=== PATIENT | female | born 1970 | race Two or more races ===

== ENCOUNTER 2017-12-24 17:00 | Emergency (ER) | payer MEDICAID ==
[~2017-12-24] VITALS: Ht 149.9 cm; Wt 79.4 kg
[2017-12-24] MEDS ORDERED: Isovue-300 100ml vial INJ PRN (19:45)
[2017-12-24 20:00] VITALS: BP 140/92
--- NOTE | 2017-12-24 20:39 | Emergency Room Report ---
History of Present Illness General Chief Complaint: Abdominal Pain Source: Patient (Loly Cuellarlizy P.A.) Present Illness HPI 47 y.o. F hx of HTN on HCTZ50, here c/o one day or periumbilical and right lower quadrant pain. denies fever/chills, nausea, vomiting, diahrrea. rates pain 8/10, no radiation, has not taken pain meds. pt just came back from [facility] 5 days ago. denies recent abx use, or intake of new food. pt is in mild distress, ambulatory and stable.denies palpitation, sob, CP. (Kyree Cuellar P.A.) Allergies: Coded Allergies: No Known Allergies (Unverified , 12/24/17) Patient History Past Medical History: see triage record Past Surgical History: none Pertinent Family History: none Last Menstrual Period: 12/02/17 Now: No : 2 Para: 2 Immunizations: UTD Reviewed Nursing Documentation: PMH: Agreed; PSxH: Agreed (Kyree Cuellar P.A.) Nursing Documentation-PMH Past Medical History: No History, Except For Hx Hypertension: Yes Hx Asthma: Yes (Kyree Cuellar P.A.) Review of Systems All Other Systems: negative except mentioned in HPI (Kyree Cuellar P.A.) Physical Exam Vital Signs Date Time Temp Pulse Resp B/P (MAP) Pulse Ox O2 Delivery O2 Flow Rate FiO2 12/24/17 17:33 98.4 88 16 140/92 96 Room Air 98.4 Sp02 EP Interpretation: reviewed, normal General Appearance: normal inspection, well appearing, mild distress Head: normocephalic Eyes: bilateral eye normal inspection, bilateral eye PERRL ENT: normal ENT inspection, hearing grossly normal Neck: normal inspection, full range of motion, supple Respiratory: normal inspection, chest non-tender, lungs clear, normal breath sounds, no rhonchi, no respiratory distress, no retraction, no accessory muscle use Cardiovascular #1: normal inspection, normal peripheral pulses, regular rate, rhythm, no edema, no gallop, no JVD, no murmur, no rub Gastrointestinal: normal bowel sounds, no organomegaly, no peritonitis, no bruit, non-distended, guarding - RLQ and periumbilica, rebound - RLQ and periumbilical, other - Mcburney's positive, rovsings pos, obturator and psoas neg Rectal: deferred Genitourinary: no CVA tenderness, deferred Musculoskeletal: normal inspection, back normal Neurologic: normal inspection, alert, oriented x3, responsive Psychiatric: normal inspection, judgement/insight normal, memory normal Skin: normal inspection, normal color, no rash, warm/dry Lymphatic: normal inspection, no adenopathy (Kyree Cuellar P.A.) Medical Decision Making PA Attestation all orders, dx, tx plans reviewed and discussed with my supervising physician Dr. medeiros (Kyree Cuellar P.A.) Diagnostic Impression: Primary Impression: Epiploic appendagitis Additional Impression: Omental infarction ER Course 47 y.o. F hx of HTN on HCTZ50, here c/o one day or periumbilical and right lower quadrant pain. denies fever/chills, nausea, vomiting, diahrrea. rates pain 8/10, no radiation, has not taken pain meds. pt just came back from [facility] 5 days ago. denies recent abx use, or intake of new food. pt is in mild distress, ambulatory and stable.denies palpitation, sob, CP. Ddx considered but are not limited to appendicitis, gastroentheritis, ovarian cyst Vital signs: are WNL, pt. is afebrile H&PE are most consistent with [ ] ORDERS: abdominal CT no contrast, CBC, CMP, lipase, UA ED INTERVENTIONS: None required at this time. WBC: 15, HCT 57, Hgb 17, leuk in UA 1+, occult blood present in UA, WBC in UA AST 86, total protein 8.7, Lab Results Impression possible renal stone, UTI (Kyree Cuellar P.A.) ER Course Hospital Course 47-year-old M presents to ED with abdominal pain Patient initially seen and evaluated by my PA; please see her note for full history and physical Clinical course Labs - noted leukocytosis, electrolytes ok, LFTs normal, UA + blood + bacteria CT scan shows area of stranding near ascending colon ? omental infarction vs epiploic appendagitis discussed findings with surgery Dr. Barr; states that management is nonoperative. Recommends appropriate analgesia and antibiotics. Close follow- up with PMD Discussed findings with patient. Agrees to plan. Given pain medications here and Cipro/Flagyl here I feel this is a highly complex case requiring extensive working including EKG/ Rhythm strip, Xray/CT/US, Blood/urine lab work, repeat exams while in ED, and administration of strong opiates/narcotics for pain control, admission to hospital or close patient follow up. Diagnosis - epipoloic appendagitis, omental infarction Stable and discharged to home with Rx Motrin, [place], Cipro, Flagyl. Followup with PMD. Return to ED if symptoms recur or worsen Labs Test 12/24/17 21:40 White Blood Count 15.6 K/UL (4.8-10.8) Red Blood Count 6.01 M/UL (4.20-5.40) Hemoglobin 17.2 G/DL (12.0-16.0) Hematocrit 52.7 % (37.0-47.0) Mean Corpuscular Volume 88 FL (80-99) Mean Corpuscular Hemoglobin 28.6 PG (27.0-31.0) Mean Corpuscular Hemoglobin Concent 32.6 G/DL (32.0-36.0) Red Cell Distribution Width 12.8 % (11.6-14.8) Platelet Count 331 K/UL (150-450) Mean Platelet Volume 7.2 FL (6.5-10.1) Neutrophils (%) (Auto) 65.3 % (45.0-75.0) Lymphocytes (%) (Auto) 26.0 % (20.0-45.0) Monocytes (%) (Auto) 5.4 % (1.0-10.0) Eosinophils (%) (Auto) 2.2 % (0.0-3.0) Basophils (%) (Auto) 1.0 % (0.0-2.0) Urine Color Pale yellow Urine Appearance Slightly cloudy Urine pH 5 (4.5-8.0) Urine Specific Garnett 1.020 (1.005-1.035) Urine Protein 2+ (NEGATIVE) Urine Glucose (UA) Negative (NEGATIVE) Urine Ketones Negative (NEGATIVE) Urine Occult Blood 2+ (NEGATIVE) Urine Nitrite Negative (NEGATIVE) Urine Bilirubin Negative (NEGATIVE) Urine Urobilinogen Normal MG/DL (0.0-1.0) Urine Leukocyte Esterase 2+ (NEGATIVE) Urine RBC 10-15 /HPF (0 - 2) Urine WBC 5-10 /HPF (0 - 2) Urine Squamous Epithelial Cells Moderate /LPF (NONE/OCC) Urine Bacteria Moderate /HPF (NONE) Sodium Level 137 MMOL/L (136-145) Potassium Level 4.0 MMOL/L (3.5-5.1) Chloride Level 102 MMOL/L (98-107) Carbon Dioxide Level 25 MMOL/L (21-32) Anion Gap 10 mmol/L (5-15) Blood Urea Nitrogen 13 mg/dL (7-18) Creatinine 1.0 MG/DL (0.55-1.30) Estimat Glomerular Filtration Rate 59.4 mL/min (>60) Glucose Level 93 MG/DL (74-106) Calcium Level 9.4 MG/DL (8.5-10.1) Total Bilirubin 0.3 MG/DL (0.2-1.0) Aspartate Amino Transf (AST/SGOT) 86 U/L (15-37) Alanine Aminotransferase (ALT/SGPT) 64 U/L (12-78) Alkaline Phosphatase 108 U/L (46-116) Total Protein 8.7 G/DL (6.4-8.2) Albumin 3.6 G/DL (3.4-5.0) Globulin 5.1 g/dL Albumin/Globulin Ratio 0.7 (1.0-2.7) Lipase 146 U/L (73-393) (Bk Medeiros MD) CT/MRI/US Diagnostic Results CT/MRI/US Diagnostic Results : Imaging Test Ordered: abd CT with contrast (Kyree Cuellar P.A.) CT/MRI/US Diagnostic Results : Imaging Test Ordered: CT A/P Impression Focal area of stranding within the fat adjacent to the ascending colon which likely represents focal omental infarction. Epiploic appendagitis is within the differential diagnosis. (Bk Medeiros MD) Last Vital Signs Date Time Temp Pulse Resp B/P (MAP) Pulse Ox O2 Delivery O2 Flow Rate FiO2 12/24/17 17:33 98.4 88 16 140/92 96 Room Air 98.4 (Kyree Cuellar P.ASalvador) Status: improved (Bk Medeiros MD) Disposition: HOME, SELF-CARE Condition: Stable Scripts Metronidazole* (FLAGYL*) 500 Mg Tablet 500 MG ORAL THREE TIMES A DAY, #21 TAB Prov: Bk Medeiros MD 12/25/17 Ciprofloxacin Hcl* (CIPROFLOXACIN HCL*) 500 Mg Tablet 500 MG ORAL Q12H, #14 TAB 0 Refills Prov: Bk Medeiros MD 12/25/17 Hydrocodone Bit/Acetaminophen 5-325* (NORCO 5-325*) 1 Each Tablet 1 TAB ORAL Q6H PRN for For Pain, #10 TAB 0 Refills Prov: Bk Medeiros MD 12/25/17 Ibuprofen* (MOTRIN*) 600 Mg Tablet 600 MG ORAL Q8H PRN for For Pain, #30 TAB 0 Refills Prov: Bk Medeiros MD 12/25/17 Referrals: [facility],REFERRING (PCP) Kyree Cuellar Dec 24, 2017 20:39 Bk Medeiros MD Dec 25, 2017 01:19
[2017-12-24 22:04] LABS: EOSINOPHILS % (AUTO) 2.2 % (0.0-3.0); HEMATOCRIT 52.7 % (37.0-47.0); HEMOGLOBIN 17.2 G/DL (12.0-16.0); MEAN CORPUSCULAR VOLUME 88 FL (80-99); MONOCYTES % (AUTO) 5.4 % (1.0-10.0); NEUTROPHILS % (AUTO) 65.3 % (45.0-75.0); PLATELET COUNT 331 K/UL (150-450); RED BLOOD COUNT 6.01 M/UL (4.20-5.40); RED CELL DISTRIBUTION WIDTH 12.8 % (11.6-14.8); WHITE BLOOD COUNT 15.6 K/UL (4.8-10.8)
[2017-12-24 22:24] LABS: ANION GAP 10 mmol/L (5-15); BLOOD UREA NITROGEN 13 mg/dL (7-18); CALCIUM 9.4 MG/DL (8.5-10.1); CARBON DIOXIDE 25 MMOL/L (21-32); CHLORIDE 102 MMOL/L (98-107); SODIUM 137 MMOL/L (136-145)
[2017-12-24 22:28] LABS: ALANINE AMINOTRANSFERASE 64 U/L (12-78); ALBUMIN 3.6 G/DL (3.4-5.0); ALBUMIN/GLOBULIN RATIO 0.7 (1.0-2.7); ALKALINE PHOSPHATASE 108 U/L (46-116); ASPARTATE AMINO TRANSFERASE 86 U/L (15-37); BILIRUBIN,TOTAL 0.3 MG/DL (0.2-1.0)
[2017-12-24 22:30] LABS: APPEARANCE,URINE SLIGHTLY CLOUDY; BILIRUBIN, URINE NEGATIVE (NEGATIVE); COLOR,URINE PALE YELLOW; GLUCOSE, URINE (UA) NEGATIVE (NEGATIVE); KETONES,URINE NEGATIVE (NEGATIVE); LEUKOCYTE ESTERASE ,URINE 2+ (NEGATIVE); NITRITE,URINE NEGATIVE (NEGATIVE); PH,URINE 5 (4.5-8.0); PROTEIN,URINE 2+ (NEGATIVE); UROBILINOGEN,URINE NORMAL MG/DL (0.0-1.0)
--- NOTE | 2017-12-25 00:32 | Diagnostic Imaging Report ---
EXAM: CT Abdomen and Pelvis With Intravenous Contrast CLINICAL HISTORY: PAIN TECHNIQUE: Axial computed tomography images of the abdomen and pelvis with intravenous contrast. CTDI is 19 mGy and DLP is 1003 mGy-cm. One or more of the following dose reduction techniques were used: automated exposure control, adjustment of the mA and/or kV according to patient size, use of iterative reconstruction technique. COMPARISON: No relevant prior studies available. FINDINGS: Lung bases: Bibasilar subsegmental atelectasis in the lungs. ABDOMEN: Liver: Unremarkable. No mass. Gallbladder and bile ducts: Unremarkable. No calcified stones. No ductal dilation. Pancreas: Unremarkable. No mass. No ductal dilation. Spleen: Unremarkable. No splenomegaly. Adrenals: Unremarkable. No mass. Kidneys and ureters: Unremarkable. No solid mass. No hydronephrosis. Stomach and bowel: Ventral hernia defect in the anterior pelvis containing fat and a portion of bowel. No bowel obstruction. The neck of the hernia defect is 4.1 cm transversely. There is an area of focal stranding in the fat adjacent to the ascending colon image 47 series 3. No mucosal thickening. PELVIS: Appendix: No findings to suggest acute appendicitis. Bladder: Unremarkable. No mass. Reproductive: Unremarkable as visualized. ABDOMEN and PELVIS: Intraperitoneal space: Unremarkable. No free air. No significant fluid collection. Bones/joints: There are degenerative changes in the thoracic and lumbar spine. No acute fracture. No dislocation. Soft tissues: See above. Vasculature: Unremarkable. No abdominal aortic aneurysm. Lymph nodes: Unremarkable. No enlarged lymph nodes. IMPRESSION: 1. Focal area of stranding within the fat adjacent to the ascending colon which likely represents focal omental infarction. Epiploic appendagitis is within the differential diagnosis. 2. Ventral hernia defect in the anterior pelvis. 3. No bowel obstruction.
[2017-12-25] MEDS ORDERED: metroNIDAZOLE 500mg tab ORAL ONE (01:00)
[2017-12-25] MEDS ORDERED: Ciprofloxacin 500mg tab ORAL ONE (01:00)
[2017-12-25] MEDS ORDERED: Ketorolac 30mg Inj IV ONE (01:00)
[2017-12-25] MEDS ORDERED: Morphine Sulfate 4mg/ml Inj IVP ONE (01:00)
[2017-12-25] MEDS ORDERED: IBUPROFEN600 MG ORAL (01:06)
[2017-12-25] MEDS ORDERED: CIPROFLOXACIN500 M2 ORAL (01:06)
[2017-12-25] MEDS ORDERED: NORCO 5-325 TA1 EACH ORAL (01:06)
[2017-12-25] MEDS ORDERED: METRONIDAZOLE500 MG ORAL (01:06)
[2017-12-25 01:10] VITALS: BP 121/87
[2017-12-25 01:26] VITALS: BP 125/82
== END 2017-12-25 01:25 | disposition home or self-care (01) ==
LOC: EMR 18:24
DX: K63.89 Other specified diseases of intestine (principal); K55.069 Acute infarction of intestine, part and extent unspecified; I10 Essential (primary) hypertension; J45.909 Unspecified asthma, uncomplicated
CPT/HCPCS: 36415; 74177; 80053; 81001; 83690; 85025; 87086; 96374; 96375; 99284; J1885; J2270; Q9967

== ENCOUNTER 2018-09-22 11:38 | Emergency (ER) | payer MEDICAID ==
[~2018-09-22] VITALS: Ht 127 cm; Wt 81.6 kg
[~2018-09-22 11:38] MED LIST: CIPROFLOXACIN500 M2 ORAL; IBUPROFEN600 MG ORAL; METRONIDAZOLE500 MG ORAL; NORCO 5-325 TA1 EACH ORAL
[2018-09-22] MEDS ORDERED: HYDROCHLOROTHIA50 MG ORAL (11:46)
--- NOTE | 2018-09-22 11:49 | NUR ---
Note undone in EDM - 09/22/18 at 1248 by [facility] ED Nurse Note: PT WALKED IN TO ER TODAY FROM HOME. AOX4. PT C/O PERSISTENT NONPRODUCTIVE COUGH AND SNEEZING X 1 WEEK. PT DENIES PAIN OR FEVER. LUNG SOUNDS CLEAR IN ALL LOBES. NO SIGNS OF RESPIRATORY DISTRESS OR RETRACTIONS NOTED. RR18 @ 98% O2 SATURATION ON RA.
--- NOTE | 2018-09-22 11:49 | NUR ---
ED Nurse Note: PT WALKED IN TO ER TODAY FROM HOME. AOX4. PT C/O PERSISTENT NONPRODUCTIVE COUGH AND SNEEZING X 1 WEEK. PT DENIES PAIN OR FEVER. LUNG SOUNDS DIMINISHED IN ALL LOBES. HOWEVER, NO SIGNS OF RESPIRATORY DISTRESS OR RETRACTIONS NOTED. RR18 @ 98% O2 SATURATION ON RA.
[2018-09-22 11:50] VITALS: BP 152/98
--- NOTE | 2018-09-22 12:04 | Emergency Room Report ---
History of Present Illness General Chief Complaint: Upper Respiratory Illness Source: Medical Record Present Illness HPI 48 year-old female patient presents ER complaining of cough for the past week. Reports dry cough. Denies hemoptysis. Reports history of asthma, complains of shortness of breath during this time, states that she is been using her inhaler. Reports that she saw her primary care provider 2 days ago and was told that it was "allergies" and was given Singulair. Reports symptoms have not improved since that time. Denies recent travel outside the country. Denies other aggravating or relieving factors. States not taking any Tylenol others medications at home. Denies fever. Denies vomiting or diarrhea. Also complaining of reproducible chest pain with cough. Denies chest pain at rest. Denies history of heart disease or heart attack. Denies hx of diabetes. Denies dysuria, hematuria. Allergies: Coded Allergies: No Known Allergies (Unverified , 12/24/17) Patient History Past Medical History: see triage record Last Menstrual Period: last summer Reviewed Nursing Documentation: PMH: Agreed; PSxH: Agreed Nursing Documentation-PMH Past Medical History: No History, Except For Hx Hypertension: Yes Hx Asthma: Yes Review of Systems All Other Systems: negative except mentioned in HPI Physical Exam Vital Signs Date Time Temp Pulse Resp B/P (MAP) Pulse Ox O2 Delivery O2 Flow Rate FiO2 09/22/18 11:43 99.1 96 16 158/103 95 Room Air Sp02 EP Interpretation: reviewed, normal General Appearance: well appearing, no apparent distress, alert, GCS 15, non- toxic Head: normocephalic, atraumatic Eyes: bilateral eye normal inspection, bilateral eye PERRL ENT: hearing grossly normal, normal pharynx, no angioedema, normal voice, uvula midline, moist mucus membranes Neck: full range of motion, no meningismus, no bony tend Respiratory: lungs clear, no rhonchi, no respiratory distress, no accessory muscle use, decreased breath sounds, speaking full sentences Cardiovascular #1: regular rate, rhythm, no edema Gastrointestinal: non tender, soft, no mass, non-distended, no guarding, no rebound Musculoskeletal: back normal, digits/nails normal, gait/station normal, normal range of motion, non-tender, no calf tenderness, Kayley's Sign negative Neurologic: alert, oriented x3, responsive, motor strength/tone normal, sensory intact Skin: no rash Medical Decision Making PA Attestation Dr. Vasques is my supervising Physician whom patient management has been discussed with. Diagnostic Impression: Primary Impression: Pneumonia Additional Impression: Asthma exacerbation ER Course Pt presents to ED c/o cough and SOB, hx of asthma. DDX considered but are not limited to asthma, viral URI, influenza, bronchitis, pneumonia, [place], Chest pain likely musculoskeletal in nature secondary to cough, does not require cardiac workup at this time. Patient instructed to take NSAIDs as needed for pain symptoms. Denies hx of cardiac disease, smoking or diabetes, low suspicion for cardiac etiology of symptoms. VITAL SIGNS are WNL, patient is afebrile. Temperature however mildly elevated, will provide patient with Motrin for fever. Ordered breathing treatment and medication. ER COURSE Patient provided with prednisone, cough medication and motrin. Duoneb breathing treatment provided. Following treatment patient states no longer having difficulty with breathing. Lung sounds improved. Patient is resting comfortably in no acute distress. Chest x-ray shows consolidation consistent with pneumonia. Will discharge patient home with abx. Patient under 65 yo, no confusion, denies urinary complaints or abdominal pain, no hematuria, no hypoxia, pulse ox>95, OK for outpatient followup and treatment. ER precautions given. Followup with PCP for further evaluation and treatment. DISCHARGE: At this time pt is stable for d/c to home. Patient is resting comfortably in no acute distress, nontoxic appearing, able to answer questions without difficulty. Patient to take medications as instructed Will provide with patient care instructions and any necessary prescriptions. Care plan and follow-up instructions provided. Patient instructed to follow-up with primary care provider in 3 - 5 days. Patient questions asked and answered. Patient reports understanding and agreement to treatment plan. ER precautions given. Patient instructed to return to ER immediately for any new or worsening of symptoms including but not limited to increasing SOB, persistent fever. - Please note that this Emergency Department Report was dictated using [employer] project technology software, occasionally this can lead to erroneous entry secondary to interpretation by the dictation equipment. Chest X-Ray Diagnostic Results Chest X-Ray Diagnostic Results : Chest X-Ray Ordered: Yes # of Views/Limited/Complete: 1 View Indication: Chest Pain EP Interpretation: Yes PA Xray: Interpretation reviewed, by supervising MD, and agrees with findings. Interpretation: no effusion, no pneumothorax Impression: Other - Pneumonia PA Scribe Text Jeffry Milan PA-C Last Vital Signs Date Time Temp Pulse Resp B/P (MAP) Pulse Ox O2 Delivery O2 Flow Rate FiO2 09/22/18 11:50 92 18 Room Air 09/22/18 11:50 98.9 152/98 98 Status: improved Disposition: HOME, SELF-CARE Condition: Stable Scripts Benzonatate* (TESSALON PERLE*) 100 Mg Capsule 100 MG ORAL THREE TIMES A DAY, #30 PERLE Prov: Simeon Milan 09/22/18 Ibuprofen* (MOTRIN*) 600 Mg Tablet 600 MG ORAL Q8H PRN for For Pain, #30 TAB 0 Refills Prov: Simeon Milan 09/22/18 Albuterol Sulfate* (ALBUTEROL SULFATE MDI*) 8.5 Gm Hfa.aer.ad 2 PUFF INH Q6H, #1 INH 0 Refills Prov: Simeon Milan 09/22/18 Prednisone* (PREDNISONE*) 20 Mg Tablet 40 MG ORAL DAILY for 4 Days, #8 TAB Prov: Simeon Milan 09/22/18 Azithromycin* (ZITHROMAX*) 250 Mg Tablet 250 MG ORAL DAILY, #6 TAB 0 Refills Take two tables once daily for 1 day, then one tablet once daily for 4 days. Prov: Simeon Milan 09/22/18 Patient Instructions: Asthma Attack Prevention, Asthma, Adult, [id number], Community-Acquired Pneumonia, Adult, [id number] Additional Instructions: Followup with primary care provider in 2-3 days. Take medications as directed. Patient questions asked and answered. ER precautions given, patient instructed to return to ER immediately for any new or worsening of symptoms including but not limited to chest pain, shortness of breath, abdominal pain. Simeon Milan Sep 22, 2018 12:04
[2018-09-22] MEDS ORDERED: Albuterol/Ipratropium 3ml neb HHN ONE (12:15)
[2018-09-22] MEDS ORDERED: Benzonatate 100mg Perles ORAL ONE (12:15)
--- NOTE | 2018-09-22 12:15 | NUR ---
ED Nurse Note: RT AT BEDSIDE.
--- NOTE | 2018-09-22 12:35 | NUR ---
ED Nurse Note: XRAY AT BEDSIDE
[2018-09-22] MEDS ORDERED: ALBUTEROL SULF8.5 GM INH (13:14)
[2018-09-22] MEDS ORDERED: ZITHROMAX250 MG ORAL (13:14)
[2018-09-22] MEDS ORDERED: PREDNISONE20 MG ORAL (13:14)
[2018-09-22] MEDS ORDERED: IBUPROFEN600 MG ORAL (13:14)
[2018-09-22] MEDS ORDERED: TESSALON PERLE100 MG ORAL (13:14)
[2018-09-22 13:25] VITALS: BP 146/92
--- NOTE | 2018-09-22 13:26 | NUR ---
ED Nurse Note: PT SITTING PEACEFULLY IN BED IN NAD. AOX4. PRESCRIPTIONS AND DISCHARGE PAPERWORK EXPLAINED TO PT. PT VERBALIZES UNDERSTANDING AND ALL QUESTIONS ANSWERED. PRESCRIPTIONS SENT ELECTRONICALLY, DISCHARGE PAPERWORK GIVEN TO PT AND ID WRISTBAND REMOVED. PT WALKED OUT OF ER WITH STEADY GAIT AND ALL BELONGINGS.
--- NOTE | 2018-09-22 16:41 | Diagnostic Imaging Report ---
Indication: Cough Technique: One view of the chest Comparison: none Findings: The heart is borderline enlarged. Lungs and pleural spaces are clear. Impression: Borderline cardiomegaly No acute process
== END 2018-09-22 13:27 | disposition home or self-care (01) ==
LOC: EMR 13:24
DX: J18.9 Pneumonia, unspecified organism (principal); J45.901 Unspecified asthma with (acute) exacerbation; I10 Essential (primary) hypertension
CPT/HCPCS: 71045; 94640; 94664; 99283; J7512; J7620

== ENCOUNTER 2019-12-22 12:43 | Inpatient (IN) | payer MEDICAID ==
[~2019-12-22] VITALS: Ht 149.9 cm; Wt 82.1 kg
[~2019-12-22 12:43] MED LIST changes: +ALBUTEROL SULF8.5 GM INH; +HYDROCHLOROTHIA50 MG ORAL; +PREDNISONE20 MG ORAL; +TESSALON PERLE100 MG ORAL; +ZITHROMAX250 MG ORAL
[2019-12-22 13:00] VITALS: BP 145/88
--- NOTE | 2019-12-22 13:00 | NUR ---
ED Nurse Note: Pt walked in from home d/t numbness in both arms, worse on the right. Numbness began this morning. Pt also reports same feeling on right leg x 2 days. Respirations even and unlabored on room air. Vitals stable as documented.
[2019-12-22] MEDS ORDERED: AMLODIPINE BESY10 MG ORAL (13:02)
--- NOTE | 2019-12-22 13:23 | NUR ---
ED Nurse Note: blood and urine sent to lab
--- NOTE | 2019-12-22 13:27 | NUR ---
ED Nurse Note: ED PA @ bedside
[2019-12-22 13:38] LABS: APPEARANCE,URINE CLEAR; BILIRUBIN, URINE NEGATIVE (NEGATIVE); GLUCOSE, URINE (UA) NEGATIVE (NEGATIVE); KETONES,URINE NEGATIVE (NEGATIVE); LEUKOCYTE ESTERASE ,URINE NEGATIVE (NEGATIVE); NITRITE,URINE NEGATIVE (NEGATIVE); PH,URINE 6 (4.5-8.0); UROBILINOGEN,URINE NORMAL MG/DL (0.0-1.0)
[2019-12-22 13:40] LABS: BASOPHILS % (AUTO) 1.2 % (0.0-2.0); EOSINOPHILS % (AUTO) 2.5 % (0.0-3.0); HEMATOCRIT 50.3 % (37.0-47.0); HEMOGLOBIN 16.7 G/DL (12.0-16.0); LYMPHOCYTES % (AUTO) 34.6 % (20.0-45.0); MEAN CORPUSCULAR VOLUME 90 FL (80-99); MONOCYTES % (AUTO) 6.8 % (1.0-10.0); NEUTROPHILS % (AUTO) 54.9 % (45.0-75.0); PLATELET COUNT 261 K/UL (150-450); RED CELL DISTRIBUTION WIDTH 11.7 % (11.6-14.8); WHITE BLOOD COUNT 12.1 K/UL (4.8-10.8)
--- NOTE | 2019-12-22 13:43 | Emergency Room Report ---
History of Present Illness General Chief Complaint: General Complaint Source: Patient Present Illness HPI 49-year-old female presents to the emergency department complaining of intermittent paresthesia of the right forearm and hand x2 days. Patient describes "feeling weird "she denies changes in muscle strength in the affected extremity. Patient denies pain. Patient reports that last week she did experience a transient episode of a muscle spasm in the right calf which resolved on its own after approximately 15 to 20 minutes. Patient reports that the muscle and skin felt really tight. She states that she examined her extremity and did not notice any obvious abnormalities or swelling. Patient denies skin color changes or symptoms in the feet. Patient denies back pain or neck pain. She denies trauma or fall. She denies visual changes, headache, dizziness, chest pain or shortness of breath. Patient states that the numbness/ tingling feeling is primarily on the dorsum of the right forearm and fingers 2 through 5 of the right hand. Patient states that it is been sparing the thumb. Patient reports she is right-hand dominant. Patient does endorse doing a lot of cleaning lately and did endorse using that hand more frequently with some increased strenuous activity such as scrubbing things. She denies joint pain. She reports hx of being prediabetic that is controlled with diet and that she is closely followed by a construction foreman. She states she has been eating healthy and accordingly to her nutrition plan. Pt. reports she has been in communication with her primary care provider whom she spoke to about the muscle spasm which occurred last week. Patient states that her primary care provider felt that it was probably from sitting for long period of time prior to onset. Patient describes sitting in tall barstool at her kitchen table where her legs do not touch the ground and a lot of pressure is placed behind the knees. Patient denies difficulty with ambulating. She denies loss of gross motor movements. She denies loss of fine motor movements. She Denies hyperventilation or increased stress/anxiety. Allergies: Coded Allergies: No Known Allergies (Unverified , 12/24/17) COVID-19 Screening Contact w/high risk pt: No Recent Travel to affected area: No Experienced COVID-19 symptoms?: No COVID-19 Testing performed POST GRADUATE INTERN: No Patient History Past Medical History: see triage record Past Surgical History: none Pertinent Family History: none Last Menstrual Period: 2 yrs ago Now: No Reviewed Nursing Documentation: PMH: Agreed; PSxH: Agreed Nursing Documentation-PMH Past Medical History: No History, Except For Hx Hypertension: Yes Hx Asthma: Yes Review of Systems All Other Systems: negative except mentioned in HPI Physical Exam Vital Signs Date Time Temp Pulse Resp B/P (MAP) Pulse Ox O2 Delivery O2 Flow Rate FiO2 12/22/19 12:55 98.2 76 18 150/86 (107) 99 Room Air Sp02 EP Interpretation: reviewed, normal General Appearance: no apparent distress, alert, GCS 15, non-toxic Head: normocephalic, atraumatic Eyes: bilateral eye normal inspection, bilateral eye PERRL, bilateral eye EOMI , bilateral eye other - no photophobia ENT: hearing grossly normal, normal voice Neck: full range of motion, no bony tend Respiratory: chest non-tender, lungs clear, normal breath sounds, no respiratory distress, no accessory muscle use, no wheezing, speaking full sentences Cardiovascular #1: regular rate, rhythm, no edema, normal capillary refill Cardiovascular #2: 2+ radial (R), 2+ radial (L) Gastrointestinal: non tender, soft Musculoskeletal: back normal, normal range of motion, gait/station normal, non- tender, other - no swelling, no erythema Neurologic: alert, motor strength/tone normal, chargeback specialist III-XII nml as tested, oriented, oriented x3, sensory intact, responsive, speech normal, normal gait, no pronator, grossly normal - normal motor strength/equal cloth bin packer strength, no focal defects, other - no focal neurological defects or ataxia ( normal finger to nose) . Negative Little's Psychiatric: judgement/insight normal Lymphatic: no adenopathy Medical Decision Making PA Attestation Dr. Brown Is my supervising Physician whom patient management has been discussed with. Diagnostic Impression: Primary Impression: Abnormal EKG Additional Impression: Paresthesia of arm ER Course 49-year-old female presents to the emergency department complaining of intermittent paresthesia of the right forearm and hand x2 days. Patient describes "feeling weird "she denies changes in muscle strength in the affected extremity. Patient denies pain. Patient reports that last week she did experience a transient episode of a muscle spasm in the right calf which resolved on its own after approximately 15 to 20 minutes. Patient reports that the muscle and skin felt really tight. She states that she examined her extremity and did not notice any obvious abnormalities or swelling. Patient denies skin color changes or symptoms in the feet. Patient denies back pain or neck pain. She denies trauma or fall. She denies visual changes, headache, dizziness, chest pain or shortness of breath. Patient states that the numbness/ tingling feeling is primarily on the dorsum of the right forearm and fingers 2 through 5 of the right hand. Patient states that it is been sparing the thumb. Patient reports she is right-hand dominant. Patient does endorse doing a lot of cleaning lately and did endorse using that hand more frequently with some increased strenuous activity such as scrubbing things. She denies joint pain. She reports hx of being prediabetic that is controlled with diet and that she is closely followed by a construction foreman. She states she has been eating healthy and accordingly to her nutrition plan. Pt. reports she has been in communication with her primary care provider whom she spoke to about the muscle spasm which occurred last week. Patient states that her primary care provider felt that it was probably from sitting for long period of time prior to onset. Patient describes sitting in tall barstool at her kitchen table where her legs do not touch the ground and a lot of pressure is placed behind the knees. Patient denies difficulty with ambulating. She denies loss of gross motor movements. She denies loss of fine motor movements. She Denies hyperventilation or increased stress/anxiety. Ddx considered but are not limited to Neuropathy, paresthesia, electrolyte imbalance, cardiac dysrhythmia, stroke, DVT, MS, cyanocobalamin deficiency. nerve palsy, neuritis Vital signs: are WNL, pt. is afebrile H&PE are most consistent with normal neurological examination, no focal neurological defects or ataxia. Negative Little's. Pt. NAD, non-toxic in appearance. No motor weakness. Alert and oriented and providing sufficient amount of detail regarding her symptoms. ORDERS: --CBC: WBC's 12.2 -CMP: AST of 52, potassium 3.4 mostly unremarkable - Troponin: 0.00 CRP * elevated 3.3 -UDS: all negative -UA: unremarkable no evidence of infection at this time. - EKG: * Abnormal appearance, repeat EKG had similar findings. No previous EKG for comparison. -CT Head without contrast: Unremarkable, no acute intracranial process per radiology. ED INTERVENTIONS: None required at this time. DISPOSITION: at this time pt. will be admitted to Dr. Joaquin for r/o of ACS and need for cardiology evaluation. Dr. Joaquin agreed to admit the pt. and to continue pt. care management. Labs Test 12/22/19 13:15 White Blood Count 12.1 K/UL (4.8-10.8) Red Blood Count 5.60 M/UL (4.20-5.40) Hemoglobin 16.7 G/DL (12.0-16.0) Hematocrit 50.3 % (37.0-47.0) Mean Corpuscular Volume 90 FL (80-99) Mean Corpuscular Hemoglobin 29.8 PG (27.0-31.0) Mean Corpuscular Hemoglobin Concent 33.2 G/DL (32.0-36.0) Red Cell Distribution Width 11.7 % (11.6-14.8) Platelet Count 261 K/UL (150-450) Mean Platelet Volume 8.1 FL (6.5-10.1) Neutrophils (%) (Auto) 54.9 % (45.0-75.0) Lymphocytes (%) (Auto) 34.6 % (20.0-45.0) Monocytes (%) (Auto) 6.8 % (1.0-10.0) Eosinophils (%) (Auto) 2.5 % (0.0-3.0) Basophils (%) (Auto) 1.2 % (0.0-2.0) Urine Color Yellow Urine Appearance Clear Urine pH 6 (4.5-8.0) Urine Specific [place] 1.020 (1.005-1.035) Urine Protein 2+ (NEGATIVE) Urine Glucose (UA) Negative (NEGATIVE) Urine Ketones Negative (NEGATIVE) Urine Blood Negative (NEGATIVE) Urine Nitrite Negative (NEGATIVE) Urine Bilirubin Negative (NEGATIVE) Urine Urobilinogen Normal MG/DL (0.0-1.0) Urine Leukocyte Esterase Negative (NEGATIVE) Urine RBC 0 /HPF (0 - 2) Urine WBC 0-2 /HPF (0 - 2) Urine Squamous Epithelial Cells Few /LPF (NONE/OCC) Urine Bacteria Few /HPF (NONE) Sodium Level 142 MMOL/L (136-145) Potassium Level 3.4 MMOL/L (3.5-5.1) Chloride Level 101 MMOL/L (98-107) Carbon Dioxide Level 30 MMOL/L (21-32) Anion Gap 11 mmol/L (5-15) Blood Urea Nitrogen 20 mg/dL (7-18) Creatinine 1.0 MG/DL (0.55-1.30) Estimat Glomerular Filtration Rate 58.9 mL/min (>60) Glucose Level 102 MG/DL (74-106) Calcium Level 9.1 MG/DL (8.5-10.1) Total Bilirubin 0.5 MG/DL (0.2-1.0) Aspartate Amino Transf (AST/SGOT) 53 U/L (15-37) Alanine Aminotransferase (ALT/SGPT) 40 U/L (12-78) Alkaline Phosphatase 127 U/L (46-116) Total Creatine Kinase 251 U/L (26-308) Troponin I 0.000 ng/mL (0.000-0.056) C-Reactive Protein, Quantitative 3.3 mg/dL (0.00-0.90) Total Protein 8.6 G/DL (6.4-8.2) Albumin 4.0 G/DL (3.4-5.0) Globulin 4.6 g/dL Albumin/Globulin Ratio 0.9 (1.0-2.7) Urine Opiates Screen Negative (NEGATIVE) Urine Barbiturates Screen Negative (NEGATIVE) Phencyclidine (PCP) Screen Negative (NEGATIVE) Urine Amphetamines Screen Negative (NEGATIVE) Urine Benzodiazepines Screen Negative (NEGATIVE) Urine Cocaine Screen Negative (NEGATIVE) Urine Marijuana (THC) Screen Negative (NEGATIVE) EKG Diagnostic Results EP Interpretation: Dr. Brown & [place] Rate: normal - 72 Rhythm: NSR ST Segments: other - Some inverted T-waves through out. Q wave in lead 2 & 3. ASA given to the pt in ED: No PA Scribe Text This Interpretation was scribed by KLAUDIA Dobson. Last Vital Signs Date Time Temp Pulse Resp B/P (MAP) Pulse Ox O2 Delivery O2 Flow Rate FiO2 12/22/19 13:00 69 18 Room Air 12/22/19 13:00 98.2 145/88 98 Disposition: ADMITTED INPATIENT Condition: Serious Referrals: [facility],REFERRING (PCP) Rosemarie Dobson Dec 22, 2019 13:43
[2019-12-22 13:46] LABS: PROTEIN,URINE 2+ (NEGATIVE)
[2019-12-22 13:48] LABS: COLOR,URINE YELLOW
[2019-12-22 13:50] LABS: ANION GAP 11 mmol/L (5-15); BLOOD UREA NITROGEN 20 mg/dL (7-18); CALCIUM 9.1 MG/DL (8.5-10.1); CARBON DIOXIDE 30 MMOL/L (21-32); CHLORIDE 101 MMOL/L (98-107); POTASSIUM 3.4 MMOL/L (3.5-5.1); SODIUM 142 MMOL/L (136-145)
[2019-12-22 13:55] LABS: ALANINE AMINOTRANSFERASE 40 U/L (12-78); ALBUMIN/GLOBULIN RATIO 0.9 (1.0-2.7); ALKALINE PHOSPHATASE 127 U/L (46-116); ASPARTATE AMINO TRANSFERASE 53 U/L (15-37); BILIRUBIN,TOTAL 0.5 MG/DL (0.2-1.0); CREATINE KINASE 251 U/L (26-308)
--- NOTE | 2019-12-22 14:31 | Diagnostic Imaging Report ---
EXAM: CT Head Without Intravenous Contrast CLINICAL HISTORY: WEAK TECHNIQUE: Axial computed tomography images of the head/brain without intravenous contrast. CTDI is 53.4 mGy and DLP is 992.1 mGy-cm. One or more of the following dose reduction techniques were used: automated exposure control, adjustment of the mA and/or kV according to patient size, use of iterative reconstruction technique. COMPARISON: None FINDINGS: Brain: No acute infarct or hemorrhage. No extra-axial fluid collection. No mass effect or midline shift. Ventricles and sulci: Normal. No ventriculomegaly or intraventricular hemorrhage. Bones: Normal. No bony lesion or fracture. Subcutaneous tissues: Normal. Sinuses: Normal. No air-fluid levels or mucosal thickening. Mastoid air cells: Normal. Orbits: Grossly unremarkable. IMPRESSION: No acute intracranial abnormality.
[2019-12-22 15:00] VITALS: BP 149/82
--- NOTE | 2019-12-22 18:01 | NUR ---
ED Nurse Note: report given to NADIA Rojas in SDU
--- NOTE | 2019-12-22 18:10 | NUR ---
ED Nurse Note: Pt transferred safely to SDU. Belongings list verified.
--- NOTE | 2019-12-22 18:15 | NUR ---
NURSE NOTES: Received report from Sandoval Kinsey RN. Patient alert and oriented x 4, no c/o pain. SR on ship captain. On room air, respirations even and unlabored. Left AC 18g saline lock patent and asymptomatic. Skin intact. Patient denies any pain or numbness at this time. Bed locked in lowest position with side rails up x 2. All needs attended to. Call light within reach. Will continue to monitor.
[2019-12-22 18:25] VITALS: BP 142/93
--- NOTE | 2019-12-22 18:25 | NUR ---
NURSE NOTES: Dr. Santana messaged for orders. Awaiting call back.
--- NOTE | 2019-12-22 18:47 | NUR ---
NURSE NOTES: Per Dr. Santana, Dr. Alejandra is covering for him, Dr. Alejandra messaged for orders. Awaiting call back.
--- NOTE | 2019-12-22 19:00 | NUR ---
NURSE NOTES: Received admission orders from Dr. Alejandra and placed in computer.
[2019-12-22] MEDS ORDERED: Nitroglycerin Subl 0.4mg tab SL PRN (19:15)
[2019-12-22] MEDS ORDERED: HydrALAZINE 25mg tab ORAL PRN (19:15)
[2019-12-22] MEDS ORDERED: Albuterol/Ipratropium 3ml neb HHN PRN (19:15)
--- NOTE | 2019-12-22 19:18 | NUR ---
HAND-OFF: Report given to Kaushal Vasquez RN.
--- NOTE | 2019-12-22 19:20 | NUR ---
NURSE NOTES: Received patient from NADIA Rojas. Patient is aaox4, vss, on personnel monitor, and no acute distress. Patient is cooperative and clean. Patient is on room air with and 18g left upper arm IV. Patient has skin issues and frequently ambulates. Will continue to monitor patient.
[2019-12-22 20:00] VITALS: BP 138/84
--- NOTE | 2019-12-22 20:22 | History & Physical ---
History and Physical History & Physicial History and Physical HPI Patient is a 49-year old woman admitted c/o complaining of intermittent paresthesia of the right forearm and hand x2 days. She denies changes in muscle strength in the affected extremity, denies pain. Previously had a muscle spasm in the right calf which resolved on its own after approximately 15 to 20 minutes, denies skin color changes or symptoms in the feet. Patient denies back pain or neck pain, no recent trauma or fall. No visual changes, headache, dizziness. No chest pain, no shortness of breath, no hyperventilation or increased stress/anxiety. She states that the numbness/tingling feeling is primarily on the dorsum of the right forearm and fingers 2 through 5 of the right hand, sparing the thumb, she did a lot of cleaning lately and did endorse using that hand more frequently with some increased strenuous activity such as scrubbing things. She denies joint pain. Past Medical History: Hypertension, Asthma, Prediabetic that is controlled with diet. Noted to have abnormal EKG in the ED Allergies: No Known Allergies All Other Systems: negative except mentioned in HPI Physical Exam Vital Signs noted Date Time Temp Pulse Resp B/P (MAP) Pulse Ox O2 Delivery O2 Flow Rate FiO2 12/22/19 12:55 98.2 76 18 150/86 (107) 99 Room Air General Appearance: no apparent distress, alert, GCS 15, non-toxic Head: normocephalic, atraumatic Eyes: bilateral eye normal inspection, bilateral eye PERRL, bilateral eye EOMI , bilateral eye other - no photophobia ENT: hearing grossly normal, normal voice Neck: full range of motion, no bony tend Respiratory: chest non-tender, lungs clear, normal breath sounds, no respiratory distress, no accessory muscle use, no wheezing, speaking full sentences Cardiovascular: HS1, HS2, regular rate, rhythm, no edema, normal perfusion Gastrointestinal: non tender, soft Musculoskeletal: back normal, normal range of motion, gait/station normal, non- tender, other - no swelling, no erythema Neurologic: alert, motor strength/tone normal, nitrating acid mixer III-XII nml as tested, oriented, oriented x3, sensory intact, responsive, speech normal, normal gait, no pronator, grossly normal - normal motor strength/equal garment inspector strength, no focal defects, other - no focal neurological defects or ataxia. Negative Little's Psychiatric: judgement/insight normal Lymphatic: no adenopathy Impression: Abnormal EKG Paresthesia of arm Hypertension Asthma Prediabetic Plan: ASA Monitor labs MOTHER REPAIRER medications Echocardiogram Cardiology consultation O2 PRN Labs Test 12/22/19 13:15 White Blood Count 12.1 K/UL (4.8-10.8) Red Blood Count 5.60 M/UL (4.20-5.40) Hemoglobin 16.7 G/DL (12.0-16.0) Hematocrit 50.3 % (37.0-47.0) Mean Corpuscular Volume 90 FL (80-99) Mean Corpuscular Hemoglobin 29.8 PG (27.0-31.0) Mean Corpuscular Hemoglobin Concent 33.2 G/DL (32.0-36.0) Red Cell Distribution Width 11.7 % (11.6-14.8) Platelet Count 261 K/UL (150-450) Mean Platelet Volume 8.1 FL (6.5-10.1) Neutrophils (%) (Auto) 54.9 % (45.0-75.0) Lymphocytes (%) (Auto) 34.6 % (20.0-45.0) Monocytes (%) (Auto) 6.8 % (1.0-10.0) Eosinophils (%) (Auto) 2.5 % (0.0-3.0) Basophils (%) (Auto) 1.2 % (0.0-2.0) Urine Color Yellow Urine Appearance Clear Urine pH 6 (4.5-8.0) Urine Specific [place] 1.020 (1.005-1.035) Urine Protein 2+ (NEGATIVE) Urine Glucose (UA) Negative (NEGATIVE) Urine Ketones Negative (NEGATIVE) Urine Blood Negative (NEGATIVE) Urine Nitrite Negative (NEGATIVE) Urine Bilirubin Negative (NEGATIVE) Urine Urobilinogen Normal MG/DL (0.0-1.0) Urine Leukocyte Esterase Negative (NEGATIVE) Urine RBC 0 /HPF (0 - 2) Urine WBC 0-2 /HPF (0 - 2) Urine Squamous Epithelial Cells Few /LPF (NONE/OCC) Urine Bacteria Few /HPF (NONE) Sodium Level 142 MMOL/L (136-145) Potassium Level 3.4 MMOL/L (3.5-5.1) Chloride Level 101 MMOL/L (98-107) Carbon Dioxide Level 30 MMOL/L (21-32) Anion Gap 11 mmol/L (5-15) Blood Urea Nitrogen 20 mg/dL (7-18) Creatinine 1.0 MG/DL (0.55-1.30) Estimat Glomerular Filtration Rate 58.9 mL/min (>60) Glucose Level 102 MG/DL (74-106) Calcium Level 9.1 MG/DL (8.5-10.1) Total Bilirubin 0.5 MG/DL (0.2-1.0) Aspartate Amino Transf (AST/SGOT) 53 U/L (15-37) Alanine Aminotransferase (ALT/SGPT) 40 U/L (12-78) Alkaline Phosphatase 127 U/L (46-116) Total Creatine Kinase 251 U/L (26-308) Troponin I 0.000 ng/mL (0.000-0.056) C-Reactive Protein, Quantitative 3.3 mg/dL (0.00-0.90) Total Protein 8.6 G/DL (6.4-8.2) Albumin 4.0 G/DL (3.4-5.0) Globulin 4.6 g/dL Albumin/Globulin Ratio 0.9 (1.0-2.7) Urine Opiates Screen Negative (NEGATIVE) Urine Barbiturates Screen Negative (NEGATIVE) Phencyclidine (PCP) Screen Negative (NEGATIVE) Urine Amphetamines Screen Negative (NEGATIVE) Urine Benzodiazepines Screen Negative (NEGATIVE) Urine Cocaine Screen Negative (NEGATIVE) Urine Marijuana (THC) Screen Negative (NEGATIVE) EKG: Rate: normal - 72 Rhythm: NSR ST Segments: other - Some inverted T-waves through out. Q wave in lead 2 [address] 3[address] CT Head:Jeffery Harris MD Dec 22, 2019 20:22
[2019-12-22] MEDS: Heparin 5000 units/ml inj SUBQ SCH (21:00)
[2019-12-22] MEDS: Aspirin Baby 81mg ORAL SCH (21:25)
[2019-12-23] VITALS: BP 134/77
[2019-12-23] MEDS: NS w/KCl 20mEq 1000ml 1,000 ML IV SCH ×2 (03:00→13:00)
--- NOTE | 2019-12-23 03:57 | NUR ---
NURSE NOTES: Patient is unable to tolerate treatment. Patient refused IV Potassium medication; she states that it hurts too much. MD ordered slower rate with a more diluted medication and the patient is still refusing. Patient was educated on the need for the medication and she still refused. I will ask for more oral medication the patient can tolerate.
[2019-12-23 04:00] VITALS: BP 121/63
--- NOTE | 2019-12-23 06:24 | NUR ---
NURSE NOTES: Patient again refused IV potassium and bed bath. Patient stated that she wanted to sleep.
--- NOTE | 2019-12-23 07:10 | NUR ---
HAND-OFF: Report given to NADIA Rojas.
[2019-12-23 07:50] LABS: BASOPHILS % (AUTO) 1.4 % (0.0-2.0); EOSINOPHILS % (AUTO) 2.7 % (0.0-3.0); HEMATOCRIT 49.3 % (37.0-47.0); HEMOGLOBIN 15.7 G/DL (12.0-16.0); LYMPHOCYTES % (AUTO) 33.6 % (20.0-45.0); MEAN CORPUSCULAR VOLUME 93 FL (80-99); MONOCYTES % (AUTO) 6.1 % (1.0-10.0); NEUTROPHILS % (AUTO) 56.3 % (45.0-75.0); PLATELET COUNT 312 K/UL (150-450); RED BLOOD COUNT 5.29 M/UL (4.20-5.40); RED CELL DISTRIBUTION WIDTH 12.7 % (11.6-14.8); WHITE BLOOD COUNT 11.5 K/UL (4.8-10.8)
--- NOTE | 2019-12-23 07:52 | NUR ---
NURSE NOTES: Received report from NADIA Schneider. Patient in bed sitting, on cellphone, Patient AOx4, on room air. No s/s cardiac, respiratory distress noticed at this time, SR with HR 66. IV on left AC 18G, asymptomatic, patent, intact. Malathi pain at this time. Bed in lowest position, locked, side rails upx2, call light within reach, bed alarm on. Endorsed venous duplex schedule for today. Will continue to monitor.
[2019-12-23 08:00] VITALS: BP 128/74
[2019-12-23 08:24] LABS: ANION GAP 10 mmol/L (5-15); BLOOD UREA NITROGEN 16 mg/dL (7-18); CALCIUM 9.3 MG/DL (8.5-10.1); CARBON DIOXIDE 29 MMOL/L (21-32); CHLORIDE 102 MMOL/L (98-107); CREATININE 0.8 MG/DL (0.55-1.30); POTASSIUM 3.6 MMOL/L (3.5-5.1); SODIUM 141 MMOL/L (136-145)
[2019-12-23] MEDS: Aspirin Baby 81mg ORAL SCH (08:32)
[2019-12-23] MEDS: Heparin 5000 units/ml inj SUBQ SCH (08:32)
[2019-12-23] MEDS ORDERED: hydroCHLOROthiazide 25mg cap ORAL SCH (09:00)
[2019-12-23 12:00] VITALS: BP 120/71
--- NOTE | 2019-12-23 13:10 | NUR ---
NURSE NOTES: Patient AOx4, refused KCl IV, stated it hurts and does not want to get it. Educated for disadvantages of refusing drugs.
[2019-12-23] MEDS ORDERED: ASPIRIN81 MG ORAL (13:52)
[2019-12-23] MEDS ORDERED: AMLODIPINE BESYL5 MG ORAL (13:52)
--- NOTE | 2019-12-23 14:32 | NUR ---
NURSE NOTES: Patient discharged to home per Dr. Alejandra in a stable condition. Patient educated for medication, s/s side effects and adverse effect, informed to follow up with PCP and cardiology. Patient discharged with all belongings via private vehicle. IV removed, ID removed and placed in shredder, animal husbandman returned to floor care technician.
--- NOTE | 2019-12-23 21:15 | Progress Note ---
DATE: 12/23/2019 CARDIOLOGY PROGRESS NOTE SUBJECTIVE: No chest pain. No shortness of breath. Troponin negative x2. Monitored rhythm, sinus. No ectopy. No new symptoms with regard to right hand numbness and tingling. LABORATORY DATA: Laboratories notable for potassium 3.6, magnesium 1.9, and TSH of 2.1. BUN 16 and creatinine 0.8. Echocardiogram revealed normal ejection fraction and no structural valvular heart disease. IMPRESSION: 1. Physical exertion leading to right hand numbness and tingling. 2. Abnormal EKG does not reflect any acute myocardial ischemia. RECOMMENDATIONS: In view of cardiac risk factors, we would recommend outpatient stress test. Jeffery Lora M.D. DR: AR JOB#: [id number] CC:
--- NOTE | 2019-12-23 22:45 | Consultation ---
DATE OF CONSULTATION: 12/22/2019 CARDIOLOGY CONSULTATION CONSULTING PHYSICIAN: Jeffery Lora M.D. REQUESTING PHYSICIAN: Hay Mccain MD REASON FOR CONSULTATION: Abnormal EKG. HISTORY OF PRESENT ILLNESS: This is a 49-year-old female presented to the emergency room complaining of right forearm and hand tingling for several days. She denied any muscle weakness or decrease in strength but has had muscle spasm in her leg as well. There was no coolness or discoloration of the infected extremity nor trauma. The patient does state that she has been working with that hand frequently lately, doing a lot of cleaning as well as strenuous activity such as scrubbing. She denied chest pain or shortness of breath. PAST MEDICAL HISTORY: Includes hypertension, glucose intolerance, asthma. ALLERGIES: None. MEDICATIONS: Reviewed. SOCIAL HISTORY: Negative for smoking, alcohol, or substance abuse. REVIEW OF SYSTEMS: Otherwise unremarkable. PHYSICAL EXAMINATION: VITAL SIGNS: Blood pressure 150/86, pulse 76, respiratory rate 18, afebrile. LUNGS: Clear. CARDIAC: Regular. Normal S1 and S2 with no murmur. ABDOMEN: Soft. EXTREMITIES: No edema. Jugular venous pressure normal with no bruits. Carotid upstrokes without delay. LABORATORY AND DIAGNOSTIC DATA: EKG reveals sinus rhythm with T-wave inversions. Troponin #1 is 0. Chemistry panel and CBC are notable only for a potassium of 3.4, BUN 20, creatinine 1, otherwise within normal limits. Urine tox screen negative. IMPRESSION: 1. Paresthesias of right arm likely related to muscle strain or nerve and associated nerve injury. 2. Abnormal electrocardiogram with T-wave inversions nonspecific and seen in the absence of any clinical signs of myocardial ischemia. 3. Hypertension. 4. Type 2 diabetes mellitus. PLAN: 1. Serial troponin. 2. Anti-platelet therapy with aspirin. 3. Hydration with IV fluids. 4. Reassess for further cardiac workup with consideration for stress test and echocardiogram to follow. 5. Prerenal azotemia likely due to hypovolemia. Jeffery Lora M.D. DR: [place] JOB#: [id number] CC: JIM
--- NOTE | 2019-12-24 11:47 | NUR ---
*-* INSURANCE *-* ALL AVAILABLE CLINICALS HAVE BEEN FAXED TO: Ernie Cabral Reference #: [id number] DAHIANA- Julisa Birch Fax Clinicals: [phone] CM Addendum: 12/24/19 at 1150 by CHRIS NI CM *-* NO DISCHARGE SUMMARY IN THE SYSTEM UJABLE TO FAX TO [facility] *-*
--- NOTE | 2019-12-25 15:59 | Discharge Summary ---
Discharge Summary Discharge Summary _ DATE OF ADMISSION: 12/22/2019 DATE OF DISCHARGE: 12/23/2019 DISCHARGED BY: Dr. Alejandra REASON FOR ADMISSION: 49 years old female with past medical history of hypertension, asthma, osteoarthritis, presented to emergency room complaining of intermittent paresthesia of the right forearm and hand for 2 days. Patient denied changes in muscle strength in affected extremity. Patient denied pain. Patient previously reported muscle spasm in the right calf, which resolved on its own, after approximately 15 to 20 minutes. Patient denied skin color changes . She denied back pain. No recent trauma or fall. No visual changes , headache or dizziness. No chest pain or shortness of breath. Upon presentation patient was afebrile. Blood pressure 150/86. Laboratory work-up revealed mild leukocytosis WBC 12.1, stable hemoglobin and hematocrit. Urinalysis revealed +2 protein ,no evidence of urinary tract infection. Potassium 3.4. Stable electrolytes and renal parameters . BUN 20, creatinine 1.0. AST 53, ALT 40. Troponin negative, EKG apparently was abnormal. Albumin 4.0. Urine toxicology screen was negative. CT of the head revealed no acute intracranial pathology. In emergency department patient received IV fluids, hydralazine for elevated blood pressure and admitted for further management. CONSULTANTS: change advisor [facility] COURSE: Patient admitted to stepdown unit. Cardiology consult was requested. Patient started on aspirin. Home medication resumed. Supplemental oxygen was on board as needed to keep pulse oximetry above 92% . Pulse oximetry remained stable on room air. Patient undergone echocardiogram, which revealed preserved ejection fraction of 60%. No evidence of wall motion abnormality. No evidence of left ventricular hypertrophy. Right ventricular systolic pressure 21. Patient started on calcium channel rei and hydrochlorothiazide for blood pressure control. Aspirin continued. Potassium was replaced. DVT prophylaxis with heparin provided. Per change advisor, paresthesia of the right arm was most likely due to muscle strain . Electrocardiogram with T wave inversion was nonspecific and seen in the absence of any clinical signs of myocardial ischemia. Patient was continued on IV hydration . Serial troponin were negative. Initial prerenal azotemia was most likely due to dehydration/hypovolemia. The next day BUN down to 16 , creatinine remained stable . Potassium stable after replacement, magnesium stable -1.9 serial . TSH within normal limits. Leukocytosis trending down to 11.5. Patient had no fever. Paresthesia resolved. Patient clinically stabilized and was ready for discharge . High physical exertion was likely lead to right hand numbness and tingling. Due to rapid and unexpected improvement in patient condition , patient was discharged in 1 day. Outpatient stress test was recommended due to cardiac risk factors. FINAL DIAGNOSES: Physical exertion, leading to right hand numbness and tingling/paresthesia Abnormal EKG -> not reflecting any acute myocardial ischemia Hypertension Asthma Prediabetes Obesity/BMI 36 DISCHARGE MEDICATIONS: See Medication Reconciliation list. DISCHARGE INSTRUCTIONS: Patient was discharged home. Patient to follow-up with a primary care provider in 1 week. Outpatient stress test was recommended due to cardiac risk factors. I have been assigned to dictate discharge summary for this account. I was not involved in the patient's management. Doreen Matos NP Dec 25, 2019 15:59
--- NOTE | 2019-12-25 16:48 | NUR ---
*-* INSURANCE *-* DISCHARGE SUMMARY HAS BEEN FAXED: Ernie Cabral Reference #: [id number] DAHIANA- Julisa Birch Fax Clinicals: [phone] CM
== END 2019-12-23 14:34 | disposition home or self-care (01) | DRG 58 ==
LOC: EMR 13:10 → EDBEDREQ 17:22 → 2W 17:44
DX: R20.2 Paresthesia of skin (principal); R20.0 Anesthesia of skin; S46.911A Strain of unspecified muscle, fascia and tendon at shoulder and upper arm level, right arm, initial encounter; X58.XXXA Exposure to other specified factors, initial encounter; I10 Essential (primary) hypertension; J45.909 Unspecified asthma, uncomplicated; R94.31 Abnormal electrocardiogram [ECG] [EKG]; R73.03 Prediabetes; E66.9 Obesity, unspecified; Z68.36 Body mass index [BMI] 36.0-36.9, adult
CPT/HCPCS: 36415; 70450; 80048; 80053; 80307; 81003; 82550; 83735; 84443; 84484; 85025; 86140; 93005; 93306; 94664; 99285; J8499